=== PATIENT | male | born 1950 | race Caucasian/White ===

== ENCOUNTER 2016-03-11 15:30 | Outpatient (RCR) | payer OTHER ==
[~2016-03-11 15:30] MED LIST: CEPHALEXIN500 M1 PO; DOXYCYCLINE 10100 MG PO; GENTAMICIN EYE D5 ML OP; NO HOME MEDICATIONS
== END 2016-04-11 09:53 | disposition still patient (30) ==
LOC: MKS.ESL.PT 15:30
DX: M25.511 Pain in right shoulder (principal)
CPT/HCPCS: G0283-GP; G8987-GP; G8988-GP; G8989-GP

== ENCOUNTER 2016-09-25 12:30 | Outpatient (RCR) | payer OTHER | END 2016-10-23 | disposition home or self-care (01) | LOC: MKS.ESL.PT | DX: M75.121 Complete rotator cuff tear or rupture of right shoulder, not specified as traumatic (principal); Z98.890 Other specified postprocedural states | CPT/HCPCS: G8978-GP; G8979-GP ==

== ENCOUNTER 2016-10-28 08:40 | Emergency (ER) | payer OTHER ==
[~2016-10-28] VITALS: Ht 175.3 cm; Wt 63.6 kg
[2016-10-28 08:44] VITALS: TEMP 98.5
[2016-10-28 09:14] LABS: BASO % 0.7 % (0.0-2.0); EOS # 0.1 (0.0-0.7); EOS % 1.8 % (0-4.0); GRAN # 4.1 (1.4-6.5); GRAN % 67.9 % (42.2-75.2); HEMATOCRIT 44.4 % (42.0-52.0); HEMOGLOBIN 15.3 g/dl (13.5-18.0); LYMPH # 1.2 (1.2-3.4); LYMPH % 19.3 % (20.0-51.0); MEAN CELL VOLUME 89 fl (80.0-100.0); MEAN CORPUSCULAR HEMOGLOBIN 31 pg (27.0-31.0); MEAN CORPUSCULAR HGB CONC 35 g/dl (33.0-37.0); MEAN PLATELET VOLUME 10.7 fl (7.4-10.4); MONO # 0.6 (0.1-0.6); MONO % 10.1 % (1.7-9.3); PLATELET COUNT 217 K/mm3 (130-400); REDCELL DISTRIBUTION WIDTH-CV 12.1 % (11.5-14.5); WHITE BLOOD COUNT 6.1 K/mm3 (4.8-10.8)
[2016-10-28 09:32] LABS: ADJUSTED CALCIUM 9.2 mg/dL (8.4-10.2); ALANINE AMINOTRANSFERASE 29 U/L (21-72); ALBUMIN 4.6 gm/dL (3.5-5.0); ALKALINE PHOSPHATASE 74 U/L (50-136); ANION GAP 12 mmol/L (7-16); BILIRUBIN,TOTAL 1.2 mg/dL (0.0-1.0); BLOOD UREA NITROGEN 13 mg/dL (9-20); CALCIUM 9.7 mg/dL (8.4-10.2); CARBON DIOXIDE 25 mmol/L (22-30); CHLORIDE 100 mmol/L (98-107); CREATININE, serum 0.94 mg/dL (0.66-1.25); GLUCOSE 88 mg/dL (74-106); LIPASE 95 U/L (23-300); POTASSIUM 4.2 mmol/L (3.4-5.0); SODIUM 137 mmol/L (137-145); TOTAL PROTEIN 7.3 gm/dL (6.4-8.2)
[2016-10-28 09:37] LABS: C-REACTIVE PROTEIN < 0.5 mg/dL (0.0-0.9)
[2016-10-28 10:29] VITALS: BP 107/69; PULSE 60
== END 2016-10-28 10:30 | disposition home or self-care (01) ==
LOC: COL.ER 08:40
PROVIDERS: Emergency Medicine
DX: K59.00 Constipation, unspecified (principal); R41.3 Other amnesia

== ENCOUNTER 2016-11-08 11:08 | Emergency (ER) | payer MEDICARE ==
[~2016-11-08] VITALS: Ht 175.3 cm; Wt 65.9 kg
[2016-11-08 11:10] VITALS: BP 119/76; TEMP 98.8
[2016-11-08 11:53] LABS: BASO % 0.5 % (0.0-2.0); EOS # 0.1 (0.0-0.7); EOS % 1.1 % (0-4.0); GRAN # 6.8 (1.4-6.5); GRAN % 81.9 % (42.2-75.2); HEMOGLOBIN 14.8 g/dl (13.5-18.0); LYMPH # 0.8 (1.2-3.4); LYMPH % 9.1 % (20.0-51.0); MEAN CELL VOLUME 89 fl (80.0-100.0); MEAN CORPUSCULAR HEMOGLOBIN 31 pg (27.0-31.0); MEAN CORPUSCULAR HGB CONC 34 g/dl (33.0-37.0); MONO # 0.6 (0.1-0.6); MONO % 7.2 % (1.7-9.3); PLATELET COUNT 195 K/mm3 (130-400); RED BLOOD COUNT 4.82 M/mm3 (4.20-5.60); REDCELL DISTRIBUTION WIDTH-CV 12.3 % (11.5-14.5); WHITE BLOOD COUNT 8.3 K/mm3 (4.8-10.8)
[2016-11-08 12:11] LABS: ADJUSTED CALCIUM 9.1 mg/dL (8.4-10.2); ALANINE AMINOTRANSFERASE 27 U/L (21-72); ALBUMIN 4.4 gm/dL (3.5-5.0); ALKALINE PHOSPHATASE 74 U/L (50-136); ANION GAP 9 mmol/L (7-16); BILIRUBIN,TOTAL 1.1 mg/dL (0.0-1.0); BLOOD UREA NITROGEN 7 mg/dL (9-20); C-REACTIVE PROTEIN < 0.5 mg/dL (0.0-0.9); CALCIUM 9.4 mg/dL (8.4-10.2); CARBON DIOXIDE 25 mmol/L (22-30); CHLORIDE 104 mmol/L (98-107); CREATININE, serum 0.84 mg/dL (0.66-1.25); GLUCOSE 102 mg/dL (74-106); POTASSIUM 4.2 mmol/L (3.4-5.0); SODIUM 138 mmol/L (137-145); TOTAL PROTEIN 6.8 gm/dL (6.4-8.2)
[2016-11-08 13:12] LABS: PH 7 (5-8); SQUAMOUS EPITHELIAL None Seen /hpf; URINE APPEARANCE Clear; URINE BACTERIA None Seen /hpf; URINE BILIRUBIN Negative (NEGATIVE); URINE BLOOD Negative (NEGATIVE); URINE COLOR Straw; URINE GLUCOSE Negative (NEGATIVE); URINE KETONE Negative (NEGATIVE); URINE RBC 0-2 /hpf; URINE UROBILINOGEN Negative (NEGATIVE); URINE WBC 0-2 /hpf
[2016-11-08 13:39] VITALS: PULSE 66
== END 2016-11-08 13:39 | disposition home or self-care (01) ==
LOC: COL.ER 11:08
PROVIDERS: Family Medicine
DX: R56.9 Unspecified convulsions (principal); K59.00 Constipation, unspecified; R63.4 Abnormal weight loss; Z68.21 Body mass index [BMI] 21.0-21.9, adult; Z87.891 Personal history of nicotine dependence; Z98.890 Other specified postprocedural states
CPT/HCPCS: J2405; J7030; Q9967

== ENCOUNTER 2019-04-24 22:46 | Emergency (ER) | payer OTHER ==
[~2019-04-24] VITALS: Ht 175.3 cm; Wt 77.3 kg
[2019-04-24 22:54] VITALS: BP 138/92
[2019-04-24 23:29] VITALS: PULSE 78; TEMP 98.4
== END 2019-04-24 23:29 | disposition home or self-care (01) ==
LOC: COL.ER 22:46
DX: S60.420A Blister (nonthermal) of right index finger, initial encounter (principal); X58.XXXA Exposure to other specified factors, initial encounter

== ENCOUNTER 2019-05-12 16:59 | Emergency (ER) | payer MEDICARE ==
[~2019-05-12] VITALS: Ht 175.3 cm; Wt 77.3 kg
[2019-05-12 17:14] VITALS: BP 126/72; TEMP 98.3
[2019-05-12] MEDS ORDERED: DOXYCYCLINE HY100 MG PO (20:29)
[2019-05-12 20:46] VITALS: PULSE 81
== END 2019-05-12 20:43 | disposition home or self-care (01) ==
LOC: COL.ER 16:59
DX: H73.893 Other specified disorders of tympanic membrane, bilateral (principal); J06.9 Acute upper respiratory infection, unspecified

== ENCOUNTER 2019-06-07 15:23 | Emergency (ER) | payer MEDICARE ==
[~2019-06-07] VITALS: Ht 175.3 cm; Wt 77.3 kg
[~2019-06-07 15:23] MED LIST changes: +DOXYCYCLINE HY100 MG PO
[2019-06-07 15:27] VITALS: BP 148/93; PULSE 81; TEMP 97.8
[2019-06-07] MEDS ORDERED: PREDNISONE20 MG PO (22:35)
[2019-06-07] MEDS ORDERED: ZITHROMAX 250M250 MG PO (22:35)
== END 2019-06-07 17:27 | disposition left against medical advice (07) ==
LOC: COL.ER 15:23
DX: M25.511 Pain in right shoulder (principal)

== ENCOUNTER 2019-06-07 21:26 | Emergency (ER) | payer MEDICARE ==
[~2019-06-07] VITALS: Ht 175.3 cm; Wt 77.3 kg
[2019-06-07 21:30] VITALS: BP 134/79; TEMP 98.3
[2019-06-07 21:56] LABS: COLLECTION METHOD CLEAN CATCH
[2019-06-07 22:03] LABS: MUCOUS Present /lpf; PH 5 (5-8); SQUAMOUS EPITHELIAL None Seen /hpf; URINE APPEARANCE Clear; URINE BACTERIA None Seen /hpf; URINE BILIRUBIN Negative (NEGATIVE); URINE BLOOD Negative (NEGATIVE); URINE COLOR Yellow; URINE GLUCOSE Negative (NEGATIVE); URINE KETONE Negative (NEGATIVE); URINE LEUKOCYTE ESTERASE Negative (NEGATIVE); URINE NITRATE Negative (NEGATIVE); URINE PROTEIN(semi-quant) Negative (NEGATIVE); URINE RBC 0-2 /hpf
[2019-06-07] MEDS ORDERED: ZITHROMAX 250M250 MG PO (22:35)
[2019-06-07] MEDS ORDERED: PREDNISONE20 MG PO (22:35)
[2019-06-07 22:45] VITALS: PULSE 96
== END 2019-06-07 22:45 | disposition home or self-care (01) ==
LOC: COL.ER 21:26
PROVIDERS: Emergency Medicine
DX: J20.9 Acute bronchitis, unspecified (principal); F17.210 Nicotine dependence, cigarettes, uncomplicated
CPT/HCPCS: J7512

== ENCOUNTER 2019-08-03 12:47 | Emergency (ER) | payer MEDICARE ==
[~2019-08-03] VITALS: Ht 175.3 cm; Wt 75.0 kg
[~2019-08-03 12:47] MED LIST changes: +PREDNISONE20 MG PO; +ZITHROMAX 250M250 MG PO
[2019-08-03 13:00] VITALS: BP 131/95
[2019-08-03] MEDS ORDERED: PREDNISONE20 MG PO (13:19)
[2019-08-03] MEDS ORDERED: DOXYCYCLINE 10100 MG PO (13:19)
[2019-08-03 13:46] VITALS: PULSE 76; TEMP 97.7
== END 2019-08-03 13:45 | disposition home or self-care (01) ==
LOC: COL.ER 12:47
DX: L25.9 Unspecified contact dermatitis, unspecified cause (principal); L03.90 Cellulitis, unspecified; Z87.891 Personal history of nicotine dependence
CPT/HCPCS: J7512

== ENCOUNTER 2019-11-21 21:22 | Emergency (ER) | payer MEDICARE ==
[~2019-11-21] VITALS: Ht 175.3 cm; Wt 65.9 kg
[2019-11-21 21:36] VITALS: BP 104/64; TEMP 97.6
[2019-11-21] MEDS ORDERED: FLEXERIL 1010 MG/TAB PO (23:17)
[2019-11-21] MEDS ORDERED: MEDROL 4MG DOSPA4 MG PO (23:17)
[2019-11-22 00:21] VITALS: PULSE 85
== END 2019-11-22 00:21 | disposition home or self-care (01) ==
LOC: COL.ER 21:22
DX: M54.16 Radiculopathy, lumbar region (principal); F17.210 Nicotine dependence, cigarettes, uncomplicated; Z79.52 Long term (current) use of systemic steroids; Z90.49 Acquired absence of other specified parts of digestive tract
CPT/HCPCS: J1885; J2360